=== PATIENT | female | born 1985 | race African-American/Black ===

== ENCOUNTER 2017-07-23 21:04 | Emergency (ER) | payer SELFPAY ==
--- NOTE | 2017-07-23 22:49 | RAD ---
RADIOGRAPH RIGHT ANKLE THREE VIEWS: HISTORY: A 31-year-old female status post acute traumatic injury to the right ankle due to twisting injury. FINDINGS: There is irregularity at the inferolateral aspect of the ankle mortise. The rest of the ankle appea rs normal. The talar dome is maintained. No fracture is identified. Mild anterior soft tissue swe lling. IMPRESSION: 1. Acute, traumatic, mild anterior soft tissue edema. 2. No acute fracture. 3. 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
--- NOTE | 2017-07-23 22:53 | RAD ---
RADIOGRAPH LEFT FOOT THREE VIEWS: HISTORY: A 31-year-old female, status post acute traumatic injury and pain in the left foot. FINDINGS: Small, 7 x 3 mm ossific fragment abutting the posterolateral edge of the cuboid, on the oblique view , appears to be corticated and probably represents an accessory ossicle rather than an acute fractur e fragment. Otherwise, the rest of the foot appears normal, with no other potential fracture. Join t spaces are maintained without erosions or osteophytes. No dislocation. IMPRESSION: Negative. POS: [facility]
== END 2017-07-23 22:10 | disposition home or self-care (01) ==
LOC: NAV ERS 21:04
DX: S93.402A Sprain of unspecified ligament of left ankle, initial encounter (principal); S93.602A Unspecified sprain of left foot, initial encounter; I42.9 Cardiomyopathy, unspecified; D64.9 Anemia, unspecified; X50.9XXA Other and unspecified overexertion or strenuous movements or postures, initial encounter